=== PATIENT | female | born 1950 | race Hispanic/Latino ===

== ENCOUNTER 2016-09-07 14:49 | Outpatient (CLI) | payer MEDICARE, OTHER | END 2016-09-07 14:50 | disposition home or self-care (01) | LOC: LABHHL 14:49 | PROVIDERS: ATTEND Surgery | DX: D36.0 Benign neoplasm of lymph nodes (principal) | CPT/HCPCS: 88305 ==

== ENCOUNTER 2017-09-07 09:00 | Inpatient (IN) | payer MEDICARE ==
[2017-09-07 09:55] LABS: Basophils # (Auto) 0.1 K/mm3 (0.0-0.1); Basophils % (Auto) 0.7 % (0.0-1.8); Eosinophils # (Auto) 0.1 K/mm3 (0.0-0.4); Eosinophils % (Auto) 1.4 % (0.0-4.3); Hematocrit 37.2 % (30.3-42.9); Hemoglobin 12.9 gm/dl (10.1-14.3); Lymphocytes % (Auto) 24.1 % (13.4-35.0); Mean Corpuscular HGB Conc 35 % (30-34); Mean Corpuscular Hemoglobin 33 pg (28-32); Mean Corpuscular Volume 96 fl (79-97); Monocytes # (Auto) 0.7 K/mm3 (0.0-0.8); Monocytes % (Auto) 8.2 % (0.0-7.3); Platelet Count 229 K/mm3 (140-440); Red Blood Count 3.87 M/mm3 (3.65-5.03); Red Cell Distribution Width 12.3 % (13.2-15.2)
[2017-09-07 10:06] LABS: INR 0.8 (0.87-1.13)
[2017-09-07 10:07] LABS: BUN/Creatinine Ratio 20; Blood Urea Nitrogen 16 mg/dL (7-17); Calcium 9.5 mg/dL (8.4-10.2); Hemolysis Index 17
--- NOTE | 2017-09-07 10:35 | Anesthesia Consultation ---
Anesthesia Consult and Med Hx Date of service: 09/07/17 - Airway Anesthetic Teeth Evaluation: Dentures ROM Head & Neck: Adequate Mental/Hyoid Distance: Adequate Mallampati Class: Class II Intubation Access Assessment: Probably Good - Pulmonary Exam CTA: Yes - Cardiac Exam Cardiac Exam: RRR - Pre-Operative Health Status ASA Pre-Surgery Classification: ASA3 Proposed Anesthetic Plan: General - Pulmonary Hx Smoking: Yes Hx Asthma: Yes (FOR YRS) COPD: Yes Hx Sleep Apnea: No - Cardiovascular System Hx Hypertension: Yes Hx Peripheral Vascular Disease: Yes - Central Nervous System Hx Back Pain: Yes Hx Psychiatric Problems: No - Other Systems Hx Cancer: Yes
[2017-09-10] MEDS ORDERED: ZOFRAN IV PRN (05:38)
[2017-09-10] MEDS ORDERED: DILAUDID IV PRN (05:38)
[2017-09-10] MEDS ORDERED: PERCOCET 5/325 PO PRN (05:38)
[2017-09-10] MEDS ORDERED: TORADOL IV PRN (05:38)
[2017-09-10] MEDS ORDERED: NACL 0.9% 1000 ML 1,000 ML IV SCH ×2 (06:00→12:00)
[2017-09-10] MEDS ORDERED: ANCEF/STERILE WATER 2 GM/20 ML 2 GM/20 ML SYRINGE IV NR (06:00)
[2017-09-10] MEDS ORDERED: PEPCID IV NR (06:00)
[2017-09-10] MEDS ORDERED: VERSED IV NR (06:00)
[2017-09-10] MEDS ORDERED: NACL BACTERIOSTATIC INFILTRATI ONE (06:37)
[2017-09-10] MEDS: NACL 0.9% 1000 ML 1,000 ML IV SCH ×2 (07:04→18:10)
--- NOTE | 2017-09-10 07:06 | Anesthesia Day of Surgery ---
Anesthesia Day of Surgery - Day of Surgery Patient Examined: Yes Patient H&P Reviewed: Yes Patient is NPO: Yes Beta Blockers: Yes Cardiac Clearance: Yes Wilfredo's Test: Negative
[2017-09-10] MEDS ORDERED: MARCAINE 0.5% 30 ML INFILTRATI ONE (07:16)
[2017-09-10] MEDS ORDERED: HEPARIN 10,000 UNITS/10 ML ONE ×2 (07:16→09:23)
[2017-09-10] MEDS ORDERED: GELFOAM TP ONE (07:16)
[2017-09-10] MEDS ORDERED: THROMBIN (BOVINE) TP ONE (07:16)
[2017-09-10] MEDS ORDERED: RIFADIN ONE (07:16)
[2017-09-10] MEDS ORDERED: PAPAVERINE ONE (07:16)
[2017-09-10] MEDS ORDERED: XYLOCAINE 1% MPF 5 mL ONE (07:16)
[2017-09-10] MEDS ORDERED: DIPRIVAN 10 MG/ML IV ONE (07:16)
[2017-09-10] MEDS ORDERED: PROTAMINE SULFATE ONE (07:16)
[2017-09-10] MEDS ORDERED: DECADRON ONE (07:17)
[2017-09-10] MEDS ORDERED: ZOFRAN ONE (07:17)
[2017-09-10] MEDS ORDERED: ZEMURON IV ONE (07:17)
[2017-09-10] MEDS ORDERED: NACL 0.9% 500 ML 500 ML ONE (07:17)
[2017-09-10] MEDS ORDERED: XYLOCAINE MPF 2% ONE (07:17)
[2017-09-10] MEDS ORDERED: DILAUDID ONE (07:17)
[2017-09-10] MEDS ORDERED: ePHEDrine SULFATE ONE (08:20)
[2017-09-10] MEDS ORDERED: NACL 0.9% IR ONE (09:07)
[2017-09-10] MEDS ORDERED: MARCAINE 0.5% INFILTRATI ONE (09:08)
[2017-09-10] MEDS ORDERED: RIFADIN 600 MG in NACL 0.9% 50 ML IR ONE (09:08)
[2017-09-10] MEDS ORDERED: HEPARIN 10,000 UNITS/10 ML 2,000 UNIT in NACL 0.9% 500 ML 500 ML IR ONE (09:08)
[2017-09-10] MEDS ORDERED: NEO SYNEPHRINE/NS Syringe(OR USE) IV ONE (09:43)
[2017-09-10] MEDS ORDERED: ROBINUL ONE (09:47)
[2017-09-10] MEDS ORDERED: NACL 0.9% 1000 ML 1,000 ML ONE ×2 (09:57→10:46)
--- NOTE | 2017-09-10 11:33 | Operative Report ---
Operative Report Operative Report: Date of procedure: 09/10/2017 Pre-operative diagnosis: Left Carotid Artery Stenosis Post-operative diagnosis: Left Carotid Artery Stenosis Procedure(s): 1. Left Carotid Endarterectomy With Patch Angioplasty 2. Intraoperative Completion Duplex Surgeon: Khalif Walsh MD [employer] Director: None Anesthesia: General Endotracheal Anesthesia EBL: 200 mL Findings: Specimen: Left Carotid Plaque Counts: Correct Complications: None Condition: Stable Indication: The patient is a 67-year-old female with a history of peripheral vascular disease and carotid artery stenosis who presented for routine follow-up of her yearly carotid duplex. This demonstrated progression of her carotid disease with increase of her carotid velocities greater than 80% stenosis. CTA of her neck confirmed greater than 80% stenosis of her left internal carotid artery. She is worked up and found to be a suitable candidate for carotid artery. She was offered the operation and given the risks, benefits, and alternative procedures and consented to the procedure. Description of Procedure: The patient was brought to the operating room and laid in supine position. After general endotracheal anesthesia was achieved the patient was placed in beachchair position with her head elevated and turned slightly to the right. The patient's neck and chest were prepped and draped in normal fashion. An oblique incision was then created along the anterior border of the sternocleidomastoid. The incision was then carried down to the facial vein using sharp dissection. The facial vein was then dissected out circumferentially, suture ligated and divided. The dissection was then carried down to the common carotid using sharp dissection. The common carotid artery was dissected out circumferentially taking care to avoid the vagus nerve which was identified and avoided. The artery was then controlled with a large vessel loop. The dissection was carried up along the external carotid and the superficial thyroid artery was identified dissected out circumferentially and controlled with a 2-0 silk. The external carotid was dissected out and controlled a small vessel loop. I then dissected out the internal carotid artery well above the plaque which was identified by a change in hue of the artery from yellow to blue and palpation of the artery over a right angle. I controlled the internal carotid artery with a small vessel and at this point the patient was systemically heparinized with heparin IV. Once the heparin had circulated for 3 minute I clamped the internal carotid artery followed by the common carotid and then the external Carotid artery. I created an arteriotomy extending from the common carotid into the internal carotid, well above the plaque, using an 11 blade and Cardona scissors. I then flashed the internal carotid artery to check for adequate backbleeding. Once ensure there was adequate backbleeding reclamped the artery and used a Torrey blade to dissect the plaque away from the artery. I used a right angle to continue the dissection of this plane from lateral to medial and then divided the plaque using Cardona scissors. I then trimmed the plaque proximally using Cardona and then teased the plaque away from the distal endpoint insuring that there were no areas of dissection or intimal flaps. These plaque forceps to remove all loose debris and then flushed the artery with heparinized saline. I then closed the artery using the Dacron patch and two 6-0 Prolenes in running fashion. Prior to completing the closure I flushed all arteries to remove all loose debris and then flushed the artery with heparinized saline. I then completed the closure in an flashed the internal carotid, reclamped and then removed the clamp from the common carotid followed by the external carotid and allowed any loose debris to flush into the external carotid. I then removed the clamp from the internal carotid artery. Hemostasis was achieved with repair sutures with 6-0 Prolene in interrupted fashion and a combination of direct pressure with Quick Clot. Once hemostasis was achieved I performed an intraoperative duplex that demonstrated no evidence of dissection and normalization of internal carotid velocity. I then anesthetized the wound with 0.5% Marcaine and closed in 2 layers using a 3-0 Vicryl in running in the deep dermal layer and a 4-0 Monocryl in running in the subcuticular layer and dressed it with the Surgiseal. The patient tolerated the procedure well all sponge needle and instrument counts were correct the patient was taken to the recovery area in stable condition.
[2017-09-10] MEDS ORDERED: NORCO 5/325 PO PRN (11:36)
--- NOTE | 2017-09-10 11:44 | Post Anesthesia Evaluation ---
- Post Anesthesia Evaluation Patient Participated: Yes Airway Patent: Yes Stable Respiratory Function: Yes Nausea/Vomiting: No Temp > 96.8F: Yes Pain Manageable: Yes Adequeate Hydration: No Block Receding Appropriately: Not Applicable Patient on Ventilator: No
[2017-09-10] MEDS ORDERED: NIPRIDE 50 MG in D5W 248 ML IV SCH (12:00)
[2017-09-10] MEDS ORDERED: INTROPIN DRIP 800 MG/D5W 250 ML 800 MG/250 ML BAG IV SCH (12:00)
[2017-09-10] MEDS: ANCEF/NS 1 GM/50 ML 1 GM/50 ML BAG IV SCH ×2 (15:03→22:11)
[2017-09-10] MEDS: NEURONTIN PO SCH ×2 (16:36→20:46)
[2017-09-10] MEDS ORDERED: XANAX ONE (21:38)
[2017-09-10] MEDS ORDERED: NON-FORMULARY (Simvastatin 20 MG) PO SCH (22:00)
[2017-09-10] MEDS ORDERED: PRAVACHOL PO SCH (22:00)
[2017-09-10] MEDS: COLACE PO SCH (22:10)
[2017-09-11 06:12] LABS: Basophils % (Auto) 0.1 % (0.0-1.8); Hematocrit 30.5 % (30.3-42.9); Hemoglobin 10.6 gm/dl (10.1-14.3); Lymphocytes # (Auto) 1.7 K/mm3 (1.2-5.4); Lymphocytes % (Auto) 10.5 % (13.4-35.0); Mean Corpuscular HGB Conc 35 % (30-34); Mean Corpuscular Hemoglobin 33 pg (28-32); Mean Corpuscular Volume 96 fl (79-97); Monocytes % (Auto) 5.9 % (0.0-7.3); Platelet Count 211 K/mm3 (140-440); Red Blood Count 3.18 M/mm3 (3.65-5.03); Red Cell Distribution Width 12.6 % (13.2-15.2)
--- NOTE | 2017-09-11 06:37 | Consultation ---
History of Present Illness Consult date: 09/11/17 Requesting physician: ELOINA FISCHER Reason for consult: other (s/p carotid endarterectomy) Medications and Allergies Allergies Allergy/AdvReac Type Severity Reaction Status Date / Time No Known Allergies Allergy Unverified 09/05/17 11:38 Home Medications Medication Instructions Recorded Confirmed Last Taken Type Multivit with Minerals/Lutein [Pub 1 each PO QDAY 10/07/15 09/07/17 09/09/17 History Senior Vitamin Tablet] Simvastatin [Zocor TAB] 20 mg PO QHS 10/07/15 09/10/17 09/09/17 History ALPRAZolam [Xanax TAB] 0.5 mg PO BID 09/07/17 09/10/17 09/09/17 History Anastrozole (Nf) [Arimidex (Nf)] 1 mg PO DAILY 09/07/17 09/10/17 09/09/17 History Carvedilol [Coreg] 12.5 mg PO DAILY 09/07/17 09/07/17 09/09/17 19:00 History Clopidogrel Bisulfate [Clopidogrel] 75 mg PO DAILY 09/07/17 09/07/17 09/09/17 History Gabapentin [Neurontin] 300 mg PO TID 09/07/17 09/10/17 09/10/17 05:30 History Losartan/Hydrochlorothiazide 1 tab PO DAILY 09/07/17 09/10/17 09/10/17 05:30 History [Losartan-Hctz 100-25 mg Tab] Potassium Chloride [Klor-Con 8] 8 meq PO QDAY 09/07/17 09/10/17 09/09/17 History oxyCODONE /ACETAMINOPHEN [Percocet 1 tab PO BID PRN 09/07/17 09/07/17 09/09/17 History 5/325 mg] Active Meds: Active Medications Acetaminophen/Hydrocodone Bitart ([place] 5/325) 1 each PO Q6H PRN PRN Reason: Pain, Moderate (4-6) Alprazolam (Xanax) 0.5 mg PO BID [facility] Carvedilol (Coreg) 12.5 mg PO DAILY [facility] Clopidogrel Bisulfate (Plavix) 75 mg PO DAILY [facility] Docusate Sodium (Colace) 100 mg PO BID [facility] Last Admin: 09/10/17 22:10 Dose: 100 mg Gabapentin (Neurontin) 300 mg PO TID [facility] Last Admin: 09/10/17 20:46 Dose: 300 mg Hydrochlorothiazide (Hctz) 25 mg PO QDAY [facility] Dopamine HCl/Dextrose (Intropin Drip 800 Mg/D5w 250 Ml) 800 mg in 250 mls @ 2.551 mls/hr IV TITR [facility]; Protocol Sodium Nitroprusside 50 mg/ (Dextrose) 250 mls @ 5.1 mls/hr IV TITR [facility]; Protocol Losartan Potassium (Cozaar) 100 mg PO QDAY [facility] Miscellaneous Medication (Anastrozole (Nf)) 1 mg PO DAILY [facility] Potassium Chloride (Klor-Con 8) 8 meq PO QDAY [facility] Pravastatin Sodium (Pravachol) 40 mg PO QHS [facility] Last Admin: 09/10/17 22:10 Dose: 40 mg Physical Examination Vital signs: Vital Signs Temp Pulse Resp BP 98 F 60 18 138/72 09/07/17 09:30 09/07/17 09:30 09/07/17 09:30 09/07/17 09:30 Results - Laboratory Findings CBC and BMP: 09/11/17 05:06 09/07/17 09:52 PT/INR, D-dimer PT 11.4 Sec. (12.2-14.9) L 09/07/17 09:52 INR 0.80 (0.87-1.13) L 09/07/17 09:52 Abnormal lab findings: Abnormal Labs 09/07/17 09/07/17 09/07/17 09:52 09:52 09:52 WBC RBC MCH 33 H MCHC 35 H RDW 12.3 L Lymph % (Auto) Travis % (Auto) 8.2 H Travis # Seg Neutrophils % Seg Neutrophils # PT 11.4 L INR 0.80 L Sodium 134 L Chloride 93.0 L Glucose 112 H 09/11/17 05:06 WBC 16.2 H RBC 3.18 L MCH 33 H MCHC 35 H RDW 12.6 L Lymph % (Auto) 10.5 L Travis % (Auto) Travis # 1.0 H Seg Neutrophils % 83.5 H Seg Neutrophils # 13.5 H PT INR Sodium Chloride Glucose
[2017-09-11] MEDS: NEURONTIN PO SCH (09:08)
[2017-09-11] MEDS: COLACE PO SCH (09:08)
[2017-09-11] MEDS ORDERED: XANAX PO SCH (10:00)
[2017-09-11] MEDS ORDERED: HCTZ PO SCH (10:00)
[2017-09-11] MEDS ORDERED: MULTIVIT WITH MINERALS PO SCH (10:00)
[2017-09-11] MEDS ORDERED: KLOR-CON 8 PO SCH (10:00)
[2017-09-11] MEDS ORDERED: PLAVIX PO SCH ×2 (10:00)
[2017-09-11] MEDS ORDERED: LUTEIN PO SCH (10:00)
[2017-09-11] MEDS ORDERED: COZAAR PO SCH (10:00)
[2017-09-11] MEDS ORDERED: NON-FORMULARY (Losartan/Hydrochlorothiazide [Losartan-Hctz 100-25 Mg Tab] 1 TAB) PO SCH (10:00)
[2017-09-11] MEDS ORDERED: COREG PO SCH (10:00)
[2017-09-11] MEDS ORDERED: NON-FORMULARY (Anastrozole (Nf) 1 MG) PO SCH (10:00)
--- NOTE | 2017-09-11 10:34 | Progress Note ---
Assessment and Plan Pt s/p L CEA. Doing well post-op. Tolerated increasing activity. D/c instructions given at the bedside. Will d/c home f/u in 2 weeks. Pt to call with any concerns. - Patient Problems (1) Carotid stenosis, left Current Visit: Yes Status: Acute Subjective Date of service: 09/11/17 Interval history: Pt awake and alert. OOB to chair, previously ambulating in the hallway without issue, currently without complaint. Objective - Constitutional Vitals: Vital Signs - 12hr 09/10/17 09/10/17 09/10/17 22:30 22:40 22:50 Temperature Pulse Rate 82 79 72 Respiratory 19 17 13 Rate Blood Pressure 148/64 148/64 148/64 O2 Sat by Pulse 99 98 97 Oximetry 09/10/17 09/10/17 09/10/17 23:00 23:10 23:18 Temperature Pulse Rate 71 80 73 Respiratory 12 14 12 Rate Blood Pressure 148/64 160/70 160/70 O2 Sat by Pulse 99 99 97 Oximetry 09/10/17 09/10/17 09/10/17 23:20 23:30 23:40 Temperature Pulse Rate 79 75 76 Respiratory 15 11 L 11 L Rate Blood Pressure 160/70 160/70 160/70 O2 Sat by Pulse 100 98 98 Oximetry 09/10/17 09/11/17 09/11/17 23:50 00:00 00:10 Temperature 97.5 F L Pulse Rate 76 73 72 Respiratory 10 L 14 13 Rate Blood Pressure 160/70 160/70 139/63 O2 Sat by Pulse 98 99 97 Oximetry 09/11/17 09/11/17 09/11/17 00:20 00:30 00:40 Temperature Pulse Rate 73 73 72 Respiratory 12 14 12 Rate Blood Pressure 160/70 160/70 160/70 O2 Sat by Pulse 97 98 98 Oximetry 09/11/17 09/11/17 09/11/17 00:50 01:00 01:10 Temperature Pulse Rate 75 78 77 Respiratory 14 16 12 Rate Blood Pressure 160/70 160/70 131/57 O2 Sat by Pulse 98 97 98 Oximetry 09/11/17 09/11/17 09/11/17 01:20 01:30 01:40 Temperature Pulse Rate 81 71 72 Respiratory 15 13 13 Rate Blood Pressure 139/63 139/63 139/63 O2 Sat by Pulse 97 98 98 Oximetry 09/11/17 09/11/17 09/11/17 01:50 02:00 02:10 Temperature Pulse Rate 72 72 73 Respiratory 11 L 16 11 L Rate Blood Pressure 139/63 131/57 140/62 O2 Sat by Pulse 98 99 99 Oximetry 09/11/17 09/11/17 09/11/17 02:20 02:30 02:40 Temperature Pulse Rate 74 71 71 Respiratory 22 12 11 L Rate Blood Pressure 140/62 140/62 140/62 O2 Sat by Pulse 98 98 98 Oximetry 09/11/17 09/11/17 09/11/17 02:50 03:00 03:10 Temperature Pulse Rate 74 78 71 Respiratory 10 L 18 13 Rate Blood Pressure 140/62 140/62 130/60 O2 Sat by Pulse 99 97 97 Oximetry 09/11/17 09/11/17 09/11/17 03:20 03:30 03:40 Temperature Pulse Rate 78 76 82 Respiratory 13 16 11 L Rate Blood Pressure 130/60 130/60 130/60 O2 Sat by Pulse 97 98 98 Oximetry 09/11/17 09/11/17 09/11/17 03:50 04:00 04:10 Temperature 98.8 F Pulse Rate 80 74 74 Respiratory 17 15 15 Rate Blood Pressure 130/60 148/57 148/57 O2 Sat by Pulse 96 97 97 Oximetry 09/11/17 09/11/17 09/11/17 04:20 04:30 04:40 Temperature Pulse Rate 74 72 73 Respiratory 15 13 14 Rate Blood Pressure 148/57 148/57 148/57 O2 Sat by Pulse 97 99 98 Oximetry 09/11/17 09/11/17 09/11/17 04:50 05:00 05:10 Temperature Pulse Rate 73 79 75 Respiratory 13 13 15 Rate Blood Pressure 148/57 148/57 150/56 O2 Sat by Pulse 98 98 97 Oximetry 09/11/17 09/11/17 09/11/17 05:20 05:30 05:40 Temperature Pulse Rate 72 77 74 Respiratory 14 13 12 Rate Blood Pressure 150/56 150/56 150/56 O2 Sat by Pulse 97 97 97 Oximetry 09/11/17 09/11/17 09/11/17 05:50 06:00 06:10 Temperature Pulse Rate 69 77 71 Respiratory 15 16 13 Rate Blood Pressure 150/56 150/56 149/61 O2 Sat by Pulse 98 94 96 Oximetry 09/11/17 09/11/17 09/11/17 06:20 06:30 06:40 Temperature Pulse Rate 70 72 71 Respiratory 13 11 L 19 Rate Blood Pressure 149/61 149/61 149/61 O2 Sat by Pulse 94 94 94 Oximetry 09/11/17 09/11/17 09/11/17 06:50 07:00 07:10 Temperature Pulse Rate 78 92 H 80 Respiratory 13 20 13 Rate Blood Pressure 149/61 149/61 115/69 O2 Sat by Pulse 96 96 97 Oximetry 09/11/17 09/11/17 09/11/17 07:20 07:30 07:40 Temperature Pulse Rate 100 H 83 77 Respiratory 15 21 20 Rate Blood Pressure 115/69 115/69 115/69 O2 Sat by Pulse 94 96 98 Oximetry 09/11/17 09/11/17 09/11/17 07:50 08:00 08:10 Temperature 98.2 F Pulse Rate 74 72 69 Respiratory 12 19 15 Rate Blood Pressure 115/69 115/69 103/67 O2 Sat by Pulse 98 98 98 Oximetry 09/11/17 09/11/17 09/11/17 08:20 08:30 08:40 Temperature Pulse Rate 74 71 87 Respiratory 17 14 16 Rate Blood Pressure 103/67 103/67 103/67 O2 Sat by Pulse 97 99 97 Oximetry 09/11/17 09/11/17 09/11/17 08:50 09:00 09:07 Temperature Pulse Rate 83 76 79 Respiratory 13 17 Rate Blood Pressure 103/67 103/67 147/60 O2 Sat by Pulse 98 95 Oximetry 09/11/17 09:08 Temperature Pulse Rate 94 H Respiratory Rate Blood Pressure 147/60 O2 Sat by Pulse Oximetry General appearance: Present: no acute distress - EENT Eyes: EOM intact ENT: hearing intact - Neck Neck: supple - Respiratory Respiratory effort: normal Extremities: no ischemia - Neurologic Neurologic: no focal deficits (Speech clear, tongue midline, lathe setup operator strength equal and adequate), moves all extremities - Psychiatric Psychiatric: appropriate mood/affect, intact judgment & insight, memory intact, cooperative, other - Labs CBC & Chem 7: 09/11/17 05:06 09/07/17 09:52 Labs: Abnormal lab results 09/11/17 Range/Units 05:06 WBC 16.2 H (4.5-11.0) K/mm3 RBC 3.18 L (3.65-5.03) M/mm3 MCH 33 H (28-32) pg MCHC 35 H (30-34) % RDW 12.6 L (13.2-15.2) % Lymph % (Auto) 10.5 L (13.4-35.0) % [place]yer # 1.0 H (0.0-0.8) K/mm3 Seg Neutrophils % 83.5 H (40.0-70.0) % Seg Neutrophils # 13.5 H (1.8-7.7) K/mm3
--- NOTE | 2017-09-11 10:42 | Short Stay Summary ---
Short Stay Documentation - History H&P: obtained from office - Allergies and Medications Current Medications: Allergies No Known Allergies Allergy (Unverified 09/05/17 11:38) Home Medications Medication Instructions Recorded Confirmed Last Taken Type Multivit with Minerals/Lutein [Pub 1 each PO QDAY 10/07/15 09/07/17 09/09/17 History Senior Vitamin Tablet] Simvastatin [Zocor TAB] 20 mg PO QHS 10/07/15 09/10/17 09/09/17 History ALPRAZolam [Xanax TAB] 0.5 mg PO BID 09/07/17 09/10/17 09/09/17 History Anastrozole (Nf) [Arimidex (Nf)] 1 mg PO DAILY 09/07/17 09/10/17 09/09/17 History Carvedilol [Coreg] 12.5 mg PO DAILY 09/07/17 09/07/17 09/09/17 19:00 History Clopidogrel Bisulfate [Clopidogrel] 75 mg PO DAILY 09/07/17 09/07/17 09/09/17 History Gabapentin [Neurontin] 300 mg PO TID 09/07/17 09/10/17 09/10/17 05:30 History Losartan/Hydrochlorothiazide 1 tab PO DAILY 09/07/17 09/10/17 09/10/17 05:30 History [Losartan-Hctz 100-25 mg Tab] Potassium Chloride [Klor-Con 8] 8 meq PO QDAY 09/07/17 09/10/17 09/09/17 History oxyCODONE /ACETAMINOPHEN [Percocet 1 tab PO BID PRN 09/07/17 09/07/17 09/09/17 History 5/325 mg] HYDROcodone/APAP 5-325 [[place] 1 each PO Q6HR PRN #30 tablet 09/11/17 Unknown Rx 5/325] Active Medications Acetaminophen/Hydrocodone Bitart ([place] 5/325) 1 each PO Q6H PRN PRN Reason: Pain, Moderate (4-6) Alprazolam (Xanax) 0.5 mg PO BID [facility] Last Admin: 09/11/17 09:08 Dose: 0.5 mg Carvedilol (Coreg) 12.5 mg PO DAILY [facility] Last Admin: 09/11/17 09:08 Dose: 12.5 mg Clopidogrel Bisulfate (Plavix) 75 mg PO DAILY [facility] Last Admin: 09/11/17 09:08 Dose: 75 mg Docusate Sodium (Colace) 100 mg PO BID [facility] Last Admin: 09/11/17 09:08 Dose: 100 mg Gabapentin (Neurontin) 300 mg PO TID [facility] Last Admin: 09/11/17 09:08 Dose: 300 mg Hydrochlorothiazide (Hctz) 25 mg PO QDAY [facility] Last Admin: 09/11/17 09:09 Dose: 25 mg Dopamine HCl/Dextrose (Intropin Drip 800 Mg/D5w 250 Ml) 800 mg in 250 mls @ 2.551 mls/hr IV TITR [facility]; Protocol Sodium Nitroprusside 50 mg/ (Dextrose) 250 mls @ 5.1 mls/hr IV TITR [facility]; Protocol Losartan Potassium (Cozaar) 100 mg PO QDAY [facility] Last Admin: 09/11/17 09:07 Dose: 100 mg Miscellaneous Medication (Anastrozole (Nf)) 1 mg PO DAILY [facility] Potassium Chloride (Klor-Con 8) 8 meq PO QDAY [facility] Last Admin: 09/11/17 09:07 Dose: 8 meq Pravastatin Sodium (Pravachol) 40 mg PO QHS [facility] Last Admin: 09/10/17 22:10 Dose: 40 mg - Physical exam Extremities: no ischemia - Brief post op/procedure progress note Procedure: Operative Report Operative Report: Date of procedure: 09/10/2017 Pre-operative diagnosis: Left Carotid Artery Stenosis Post-operative diagnosis: Left Carotid Artery Stenosis Procedure(s): 1. Left Carotid Endarterectomy With Patch Angioplasty 2. Intraoperative Completion Duplex Surgeon: Khalif Walsh MD [employer] Assistant: None Anesthesia: General Endotracheal Anesthesia EBL: 200 mL Findings: Specimen: Left Carotid Plaque Counts: Correct Complications: None Condition: Stable Indication: The patient is a 67-year-old female with a history of peripheral vascular disease and carotid artery stenosis who presented for routine follow-up of her yearly carotid duplex. This demonstrated progression of her carotid disease with increase of her carotid velocities greater than 80% stenosis. CTA of her neck confirmed greater than 80% stenosis of her left internal carotid artery. She is worked up and found to be a suitable candidate for carotid artery. She was offered the operation and given the risks, benefits, and alternative procedures and consented to the procedure. - Hospital course Hospital course: Routine carotid surgery with post-op care. - Disposition Condition at discharge: Stable Disposition: DC-01 TO HOME OR SELFCARE - Discharge Diagnoses (1) Carotid stenosis, left Status: Acute Short Stay Discharge Plan Activity: advance as tolerated Weight Bearing Status: Weight Bear as Tolerated Diet: regular Wound: keep clean and dry Special Instructions: smoking cessation Follow up with: KHALIF WALSH MD [Staff Physician] - 14 Days Prescriptions: HYDROcodone/APAP 5-325 [[place] 5/325] 1 each PO Q6HR PRN #30 tablet PRN Reason: Pain
[2017-09-11 11:21] VITALS: BP 130/45
--- NOTE | 2017-09-12 15:05 | Vascular Lab Report ---
INTRAOPERATIVE CAROTID ARTERY DUPLEX Reason for exam: Completion of carotid endarterectomy Comments on the left: The common and internal carotid arteries are patent without evidence of intraluminal irregularities. Flow velocities appear to be appropriate. No obvious technical defects at the endarterectomy site appreciated. Impression: No obvious technical imperfections at the endarterectomy site.
== END 2017-09-11 12:15 | disposition home or self-care (01) | DRG 27 ==
LOC: 3A 09-10 05:49 → CC1 09-10 11:20
PROVIDERS: ADMIT Surgery Vascular Surgery; ATTEND Surgery Vascular Surgery
PROC: 03CL3ZZ Extirpation of Matter from Left Internal Carotid Artery, Percutaneous Approach (ICD-10-PCS; principal; 2017-09-10)
PROC: 03CJ3ZZ Extirpation of Matter from Left Common Carotid Artery, Percutaneous Approach (ICD-10-PCS; 2017-09-10)
PROC: 03U Upper Arteries, Supplement (ICD-10-PCS; 2017-09-10)
PROC: 03UL0JZ Supplement Left Internal Carotid Artery with Synthetic Substitute, Open Approach (ICD-10-PCS; 2017-09-10)
DX: I65.22 Occlusion and stenosis of left carotid artery (principal); I70.213 Atherosclerosis of native arteries of extremities with intermittent claudication, bilateral legs; E78.5 Hyperlipidemia, unspecified; I10 Essential (primary) hypertension; F17.290 Nicotine dependence, other tobacco product, uncomplicated; Z98.51 Tubal ligation status; Z90.49 Acquired absence of other specified parts of digestive tract; Z90.12 Acquired absence of left breast and nipple; Z79.899 Other long term (current) drug therapy
CPT/HCPCS: 36415; 80048; 85025; 85610; 86850; 86900; 86901; 88304; 88311; A4649; A9270-GY; C1757; C1768; J0690; J1100; J1170; J1644; J2250; J2370; J2405; J2440; J2704; J2720; J3490; J7030; J7040

== ENCOUNTER 2022-01-07 19:02 | Emergency (ER) | payer OTHER, MEDICARE ==
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
[2022-01-07 22:54] LABS: Basophils # (Auto) 0.1 K/mm3 (0.0-0.1); Basophils % (Auto) 1.4 % (0.0-1.8); Eosinophils # (Auto) 0.2 K/mm3 (0.0-0.4); Hematocrit 40.5 % (30.3-42.9); Hemoglobin 14.3 gm/dl (10.1-14.3); Lymphocytes # (Auto) 3.4 K/mm3 (1.2-5.4); Lymphocytes % (Auto) 35.8 % (13.4-35.0); Mean Corpuscular HGB Conc 36 % (30-34); Mean Corpuscular Volume 95 fl (79-97); Monocytes # (Auto) 0.6 K/mm3 (0.0-0.8); Monocytes % (Auto) 5.8 % (0.0-7.3); Platelet Count 222 K/mm3 (140-440); Red Blood Count 4.26 M/mm3 (3.65-5.03); Red Cell Distribution Width 13.2 % (13.2-15.2)
[2022-01-07 23:03] LABS: INR 0.78 (0.87-1.13)
[2022-01-07 23:04] LABS: Partial Thromboplastin Time 27.9 Sec. (24.2-36.6)
[2022-01-07 23:14] LABS: BUN/Creatinine Ratio 19; Blood Urea Nitrogen 17 mg/dL (7-17); Calcium 8.8 mg/dL (8.4-10.2); Hemolysis Index 22
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
[2022-01-07] MEDS ORDERED: HYDROcodone/ACETAMINOPHEN 5-325 MG TAB PO ONE (23:27)
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
[2022-01-08 16:32] VITALS: BP 134/78
== END 2022-01-08 16:33 | disposition home or self-care (01) ==
LOC: ED 19:02
DX: R94.02 Abnormal brain scan (principal); R93.7 Abnormal findings on diagnostic imaging of other parts of musculoskeletal system; F17.200 Nicotine dependence, unspecified, uncomplicated; I10 Essential (primary) hypertension; J45.909 Unspecified asthma, uncomplicated; Z90.89 Acquired absence of other organs; V89.2XXA Person injured in unspecified motor-vehicle accident, traffic, initial encounter; Y93.89 Activity, other specified; Y92.89 Other specified places as the place of occurrence of the external cause; Y99.8 Other external cause status
CPT/HCPCS: 36415; 70450; 70553; 72125; 80048; 85025; 85610; 85730; 99284; A9575